=== PATIENT | male | born 1965 | race Caucasian/White ===

== ENCOUNTER 2024-07-19 15:15 | Emergency (ER) | payer OTHER, SELFPAY ==
--- OUTSIDE RECORDS SUMMARY | 2024-07-19 15:36 | XMS_ITS | Clinical Summary ---
Author Organization [facility] Address [address] [place] [id number] Care Team Providers Care Tear Down Man Name Role Phone Unavailable Primary Care Provider Unavailabl e Social History Tobacco Use Types Packs/Day Years Used Date Smoking Tobacco: Never Assessed Sex and Gender Information Value Date Recorded Sex Assigned at Not on file Legal Sex Male 5:44 PM [employer] Gender Identity Not on file Sexual Orientation Not on file Plan of Treatment Health Maintenance Due Date Last Done Comments Colorectal Cancer Screening Colonoscopy (10 Years) 1965 Annual Physical 1968 Hepatitis C 10/30/1983 DTaP, Tdap and Td Vaccines ( 1 - Tdap) 1984 Hepatitis B Vaccines (1 of 3 - 19+ 3-dose series) 1984 Zoster Vaccines (1 of 2) 10/30/2015 COVID-19 Vaccine (2023-2 5 season) 2024 Influenza Adult (#1) 2024 Meningococcal B Vaccine Aged Out No l onger eligible based on patient's age to complete this topic Meningococcal Vaccine Aged Out No love ranjeet eligible based on patient's age to complete this topic Pneumococcal Vaccine: Pediat rics (0 to 5 Years) and At-Risk Patients (6 to 64 Years) Aged Out No longer eligible b ased on patient's age to complete this topic RSV Immunizations Under 20 Months Aged Out No longer eligible based on patient's age to complete this topic
[2024-07-19 15:45] VITALS: BP 195/77; PULSE 73; RESP 20; TEMP 37.1; O2SAT 98
[2024-07-19 16:43] LABS: EDSTREPNEGPOS1 Negative (Negative)
[2024-07-19 16:43] LABS: EDSTREPNEGPOS1 Negative (Negative)
[2024-07-19 17:55] LABS: EDMONONEGPOS Negative (Positive)
--- NOTE | 2024-07-19 17:57 | ED_ITS ---
HPI - General Adult General Chief complaint: Upper Respiratory Infection Stated complaint: sore throat Source: patient Mode of arrival: ambulatory Limitations: no limitations History of Present Illness HPI narrative: Patient presents for evaluation of sore throat for the last 2 days. He denies any fever, chills, nausea, vomiting cough, shortness of breath. His also has a sore throat. He has a history of strep pharyngitis and this feels similar. Yesterday he was very fatigued and slept for 14 hours. Related Data Home Medications ?Medication ?Instructions ?Recorded ?Confirmed ?Last Taken ?Type amlodipine 10 mg tablet (Norvasc) 10 mg PO DAILY 07/19/24 Unknown History levothyroxine .ROUTE 07/19/24 Unknown History lisinopril 40 mg tablet 40 mg PO DAILY 07/19/24 Unknown History metoprolol succinate PO 07/19/24 Unknown History omeprazole .ROUTE 07/19/24 Unknown History Allergies Allergy/AdvReac Type Severity Reaction Status Date / Time No Known Allergies Allergy Verified 07/19/24 15:42 Review of Systems Review of Systems: CONSTITUTIONAL: Reports fatigue. Denies fever, chills, or sweats. EYES: Denies visual changes, redness, or discharge. ENT: Reports sore throat. Denies rhinorrhea, congestion, or otalgia. CARDIOVASCULAR: Denies chest pain, palpitations, or edema. RESPIRATORY: Denies cough or dyspnea. GASTROINTESTINAL: Denies abdominal pain, nausea, vomiting, or diarrhea. GENITOURINARY: Denies dysuria or hematuria. SKIN: Denies rash or itching. MUSCULOSKELETAL: Denies back pain, joint pain, or myalgia. NEUROLOGIC: Denies headache, numbness, dizziness, or weakness. PSYCHIATRIC: Denies anxiety or depression. [facility] Past Medical History Medical History Hyperlipidemia Depression Hypertension Surgical History Surgical History No pertinent past surgical history Family History Family History Mother Family history non-contributory Social History Social History Living arrangements: with family Gender identity (if verbalized by the patient): Male Sexual Orientation (if Verbalized by the Patient): Straight or Heterosexual Spiritual care concerns: No Exam Narrative: GENERAL: Well-appearing, well-nourished, and in no acute distress. HEAD: Normocephalic, atraumatic. EYES: PERRLA and EOMI. ENT: Nares clear, no rhinorrhea or epistaxis. Mucous membranes moist. Posterior pharyngeal erythema. Uvula is midline. Oropharynx without tonsillar hypertrophy exudate or other lesions. Bilateral TMs pearly collins nonbulging NECK: Supple. No adenopathy or masses. No carotid bruits or JVD CHEST: Clear to auscultation. No respiratory distress. No wheezes rales or rhonchi HEART: Regular rate and rhythm. No murmur heard. Normal peripheral pulses. ABDOMEN: Soft, nontender, nondistended, normal active bowel sounds. EXTREMITIES: Normal range of motion. No edema. SKIN: Warm, dry, no rash. NEURO: No focal deficits. Alert and oriented x3. PSYCH: Normal mood and affect. Course Course Emergency Course: This is a 58 year-old male who presented for evaluation of sore throat. He has a history of strep and this feels similar. Strep and mono negative. Through shared decision making opted to proceed with abx therapy. Will discharge with amoxicillin. Increase hydration. [id number] agents for symptom management. Follow up with primary provider. Go to the ER worsening symptoms. Patient in agreement with plan care. Level of Care: Express Care Visit Vital Signs Vital signs: Vital Signs Temperature 37.1 C 07/19/24 15:45 Pulse Rate 73 07/19/24 15:45 Respiratory Rate 20 07/19/24 15:45 Blood Pressure 195/77 H 07/19/24 15:45 Pulse Oximetry 98 07/19/24 15:45 Oxygen Delivery Room Air 07/19/24 15:45 Temperature 37.1 C 07/19/24 15:45 Pulse Rate 73 07/19/24 15:45 Respiratory Rate 20 07/19/24 15:45 Blood Pressure 195/77 H 07/19/24 15:45 Pulse Oximetry 98 07/19/24 15:45 Oxygen Delivery Room Air 07/19/24 15:45 Medical Decision Making Vital Signs Vital Signs: Vital Signs Temperature 37.1 C 07/19/24 15:45 Pulse Rate 73 07/19/24 15:45 Respiratory Rate 20 07/19/24 15:45 Blood Pressure 195/77 H 07/19/24 15:45 Pulse Oximetry 98 07/19/24 15:45 Oxygen Delivery Room Air 07/19/24 15:45 Temperature 37.1 C 07/19/24 15:45 Pulse Rate 73 07/19/24 15:45 Respiratory Rate 20 07/19/24 15:45 Blood Pressure 195/77 H 07/19/24 15:45 Pulse Oximetry 98 07/19/24 15:45 Oxygen Delivery Room Air 07/19/24 15:45 Lab Data Labs: Lab Results 07/19/24 07/19/24 07/19/24 Range/Units 16:36 16:41 17:53 POC Monoscreen Negative (Positive) POC Grp A Strep Screen Negative Negative (Negative) Discharge Plan Discharge Clinical Impression: Pharyngitis Patient Disposition: Home, Self-Care Condition: Stable Instructions: Antibiotic Form, Pharyngitis (ED) Patient Language: Thai Prescriptions: New amoxicillin 500 mg capsule 500 mg PO Q12H Qty: 20 0RF No Action metoprolol succinate PO amlodipine [Norvasc] 10 mg tablet 10 mg PO DAILY lisinopril 40 mg tablet 40 mg PO DAILY levothyroxine .ROUTE omeprazole .ROUTE Follow-up/Referrals: Randa Plata DO [Physician] - Time of Disposition: 17:54
== END 2024-07-19 17:58 | disposition home or self-care (01) ==
PROVIDERS: Emergency Provider Nurse Practitioner
DX: J02.9 Acute pharyngitis, unspecified (principal); I10 Essential (primary) hypertension; E78.5 Hyperlipidemia, unspecified
CPT/HCPCS: 36416; 86308; 87081; 87880; 99213; G0463